=== PATIENT | female | born 1985 | race American Indian/Alaskan Native ===

== ENCOUNTER 2017-12-12 00:04 | Emergency (ER) | payer MEDICAID, BC ==
[2017-12-12 00:29] VITALS: RESP 18; BMI 29.9
--- NOTE | 2017-12-12 01:15 | ED PDOC ---
Arrival/HPI - General Chief Complaint: Flu-like Symptoms Time Seen by Provider: 12/12/17 00:11 Historian: Patient - History of Present Illness Narrative History of Present Illness (Text): 12/12/17 01:15 32 year old female, with no significant past medical history, presents to the Emergency department complaining of flu-like symptoms since past week. Patient informs low grade fever associated with non-productive cough and runny nose. Patient states no improvement to symptoms since onset prompting her to present to the Emergency department for medical evaluation. Patient denies any nausea, vomiting, diarrhea, abdominal pain, dysuria, urinary output changes, changes in bowel movement, chest pain, shortness of breath, sick contact, recent travel or any other complaints. PMD: Dr. Corado Time/Duration: 1 week Symptom Onset: Gradual Symptom Course: Unchanged Activities at Onset: Light Context: Home Past Medical History - Provider Review Nursing Documentation Reviewed: Yes - Infectious Disease Hx of Infectious Diseases: None - Tetanus Immunization Tetanus Immunization: Unknown - Past Medical History Past Medical History: No Previous - Musculoskeletal/Rheumatological Hx Falls: No - Psychiatric Hx Depression: No Hx Emotional Abuse: No Hx Physical Abuse: No Hx Substance Use: No - Past Surgical History Past Surgical History: No Previous - Anesthesia Hx Anesthesia: No - Suicidal Assessment Feels Threatened In Home Enviroment: No Family/Social History - Physician Review Nursing Documentation Reviewed: Yes Family/Social History: No Known Family HX Smoking Status: Never Smoked Hx Alcohol Use: Yes (socially) Hx Substance Use: No Hx Substance Use Treatment: No Allergies/Home Meds Allergies/Adverse Reactions: Allergies No Known Allergies Allergy (Verified 10/22/11 11:38) Review of Systems - Physician Review All systems were reviewed & negative as marked: Yes - Review of Systems Constitutional: Fevers Eyes: Normal ENT: Rhinorrhea Respiratory: Cough. absent: SOB Cardiovascular: Normal. absent: Chest Pain Gastrointestinal: Normal. absent: Abdominal Pain, Stool Changes, Diarrhea, Nausea, Vomiting Genitourinary Female: Normal. absent: Dysuria, Urine Output Changes Musculoskeletal: Normal Skin: Normal Neurological: Normal Endocrine: Normal Hemo/Lymphatic: Normal Psychiatric: Normal Physical Exam Vital Signs Reviewed: Yes Vital Signs Temp Pulse Resp BP Pulse Ox 12/12/17 03:08 98.1 F 82 18 100 12/12/17 02:59 98.1 F 80 18 118/76 98 12/12/17 01:26 101.4 F H 12/12/17 00:22 101.4 F H 101 H 18 116/69 99 Temperature: Febrile Blood Pressure: Normal Pulse: Tachycardic Respiratory Rate: Normal Appearance: Positive for: Well-Appearing, Non-Toxic, Comfortable Pain Distress: None Mental Status: Positive for: Alert and Oriented X 3 - Systems Exam Head: Present: Atraumatic, Normocephalic Pupils: Present: PERRL Extroacular Muscles: Present: EOMI Conjunctiva: Present: Normal Mouth: Present: Moist Mucous Membranes Neck: Present: Normal Range of Motion Respiratory/Chest: Present: Clear to Auscultation, Good Air Exchange. No: Respiratory Distress, Accessory Muscle Use Cardiovascular: Present: Regular Rate and Rhythm, Normal S1, S2. No: Murmurs Abdomen: No: Tenderness, Distention, Peritoneal Signs Back: Present: Normal Inspection Upper Extremity: Present: Normal Inspection. No: Cyanosis, Edema Lower Extremity: Present: Normal Inspection. No: Edema Neurological: Present: GCS=15, CN II-XII Intact, Speech Normal Skin: Present: Warm, Dry, Normal Color. No: Rashes Psychiatric: Present: Alert, Oriented x 3, Normal Insight, Normal Concentration Medical Decision Making ED Course and Treatment: 12/12/17 01:11 Impression: 32 year old female presents to the Emergency department for flu- like symptoms. Plan: -- Labs -- Chest X-ray -- Tylenol -- Reassess and disposition Prior Visits: Notes and results from previous visits were reviewed. Progress Notes: 12/12/17 03:00 Chest X-ray reviewed, shows no acute processes. - Lab Interpretations Lab Results: 12/12/17 01:39 12/12/17 01:39 Lab Results 12/12/17 01:39: WBC 8.8, RBC 3.84, Hgb 11.4 L, Hct 34.5 L, MCV 89.8, MCH 29.7, MCHC 33.0, RDW 13.3, Plt Count 265, MPV 10.0 12/12/17 01:39: Sodium 141, Potassium 4.1, Chloride 104, Carbon Dioxide 25, Anion Gap 16, BUN 10, Creatinine 0.9, Est GFR ( Amer) > 60, Est GFR (Non- Af Amer) > 60, Random Glucose 98, Calcium 8.9, Total Bilirubin 0.3, AST 21, ALT 25, Alkaline Phosphatase 52, Total Protein 7.7, Albumin 4.2, Globulin 3.5, Albumin/Globulin Ratio 1.2 12/12/17 01:29: Influenza Typ A,B (EIA) Negative for flu a/b - RAD Interpretation Radiology Orders: 12/12/17 01:11 CHEST PORTABLE [RAD] Stat Business Office Director: ED Physician - Medication Orders Current Medication Orders: Discontinued Medications Acetaminophen (Tylenol 325mg Tab) 650 mg PO STAT STA Stop: 12/12/17 01:12 Last Admin: 12/12/17 01:26 Dose: 650 mg MAR Pain/Vitals Document 12/12/17 01:26 BERNABE (Rec: 12/12/17 01:27 BERNABE [id number]) Pain Reassessment Is This A Pain ReAssessment? No Sleep Is patient sleeping during reassessment? No Presence of Pain Presence of Pain Yes Pain Scale Used Pain Scale Used Numeric Location Intensity 7 Scale Used Numeric Vitals Temperature (97.6 F-99.6 F) 101.4 F Temperature Source Oral - Scribe Statement The provider has reviewed the documentation as recorded by the Scribe Yann Venegas. All medical record entries made by the Scribe were at my direction and personally dictated by me. I have reviewed the chart and agree that the record accurately reflects my personal performance of the history, physical exam, medical decision making, and the department course for this patient. I have also personally directed, reviewed, and agree with the discharge instructions and disposition. Disposition/Present on Arrival - Present on Arrival Any Indicators Present on Arrival: No History of DVT/PE: No History of Uncontrolled Diabetes: No Urinary Catheter: No History of Decub. Ulcer: No History Surgical Site Infection Following: None - Disposition Have Diagnosis and Disposition been Completed?: Yes Diagnosis: Bronchitis Disposition: HOME/ ROUTINE Disposition Time: 03:00 Patient Plan: Discharge Condition: GOOD Discharge Instructions (ExitCare): Acute Bronchitis, Adult (DC) Additional Instructions: Drink plenty of liquids/tylenol for fever as directed/take meds as prescribed/ follow up with your doctor this week Prescriptions: Benzonatate [Tessalon Perles] 100 mg PO TID PRN #21 sgl PRN Reason: Cough Azithromycin [Zithromax] 250 mg PO DAILY #6 tab Referrals: Radha Corado DO [Primary Care Provider] - Follow up with primary Forms: Spool (Icelandic)
[2017-12-12 02:01] LABS: ALB/GLOB RATIO 1.2 (1.1-1.8); ALBUMIN 4.2 g/dL (3.0-4.8); ALT/SGPT 25 U/L (7-56); AST/SGOT 21 U/L (14-36); BLOOD UREA NITROGEN 10 mg/dL (7-21); CALCIUM 8.9 mg/dL (8.4-10.5); GFR AFRICAN-AMERICAN > 60; GFR NON-AFRICAN AMERICAN > 60
[2017-12-12 02:09] LABS: HEMOGLOBIN 11.4 g/dL (12.0-16.0); MEAN CELL VOLUME 89.8 fl (80.0-105.0); MEAN CORPUSCULAR HEMOGLOBIN 29.7 pg (25.0-35.0); RBC 3.84 10^6/uL (3.5-6.1); RED CELL DISTRIBUTION WIDTH 13.3 % (11.5-14.5); WHITE BLOOD COUNT 8.8 10^3/ul (4.5-11.0)
[2017-12-12 03:00] VITALS: BP 118/76; TEMP 98.1
[2017-12-12 03:11] VITALS: PULSE 82; O2SAT 100
--- NOTE | 2017-12-12 10:31 | RAD ---
HISTORY: fever/cough COMPARISON: 10/22/2011 FINDINGS: LUNGS: No active pulmonary disease. PLEURA: No significant pleural effusion identified, no pneumothorax apparent. CARDIOVASCULAR: Normal. OSSEOUS STRUCTURES: No significant abnormalities. VISUALIZED UPPER ABDOMEN: Normal. OTHER FINDINGS: None. IMPRESSION: No active disease. No significant interval change compared to the prior examination(s).
== END 2017-12-12 03:08 | disposition home or self-care (01) ==
LOC: ED 00:04
DX: J20.9 Acute bronchitis, unspecified (principal)

== ENCOUNTER 2017-12-15 16:12 | Inpatient (IN) | payer BC, MEDICAID ==
[2017-12-15 16:12] VITALS: BMI 29.9
[2017-12-15] MEDS ORDERED: Sodium Chloride 0.9% 1,000 ML IV STA (17:16)
--- NOTE | 2017-12-15 17:23 | ED PDOC ---
Arrival/HPI - General Chief Complaint: Fever Time Seen by Provider: 12/15/17 17:12 Historian: Patient EM Caveat: Unstable Vital Signs - History of Present Illness Narrative History of Present Illness (Text): 12/15/17 17:19 Pt is a 32 year old female, with no significant past medical history, presents to the Emergency department complaining of fever, cough and vomiting for the past week. Pt says she was diagnosed with bronchitis and was given Azithromycin and tessalon perles. Pt was last seen at [facility] [place] [facility] 12/12/17 and discharged. Pt was also assessed at [facility] [place] and was given tylenol, fluids and d/c'd home. Pt continues to have a high fever, vomiting and cough and has almost finished Z- Alexander. Patient denies diarrhea, abdominal pain, dysuria, urinary output changes, changes in bowel movement, chest pain, shortness of breath, sick contact, recent travel or any other complaints. PMD: Dr. Corado Time/Duration: 1 week Symptom Onset: Gradual Symptom Course: Unchanged Quality: Unable to Describe Severity Level: 4 Activities at Onset: Rest, Light Context: Home Past Medical History - Provider Review Nursing Documentation Reviewed: Yes - Travel History Have you recently traveled outside [place] w/in the past 3 mons?: No - Infectious Disease Hx of Infectious Diseases: None - Tetanus Immunization Tetanus Immunization: Unknown - Reproductive Menopause: No - Past Medical History Past Medical History: No Previous - Cardiac Hx Cardiac Disorders: No - Pulmonary Hx Respiratory Disorders: No - Musculoskeletal/Rheumatological Hx Falls: No - Psychiatric Hx Depression: No Hx Emotional Abuse: No Hx Physical Abuse: No Hx Substance Use: No - Past Surgical History Past Surgical History: No Previous - Surgical History Other/Comment: upper back surgery , lump removal - Anesthesia Hx Anesthesia: No - Suicidal Assessment Feels Threatened In Home Enviroment: No Family/Social History - Physician Review Nursing Documentation Reviewed: Yes Family/Social History: Unknown Family HX Smoking Status: Never Smoked Hx Alcohol Use: Yes (socially) Hx Substance Use: No Hx Substance Use Treatment: No Allergies/Home Meds Allergies/Adverse Reactions: Allergies No Known Allergies Allergy (Verified 12/15/17 16:26) Review of Systems - Review of Systems Constitutional: Fatigue, Fevers Eyes: Normal ENT: Normal Respiratory: Normal, Cough Cardiovascular: Normal. absent: Chest Pain Gastrointestinal: Normal, Nausea, Vomiting, Appetite Changes. absent: Abdominal Pain, Stool Changes, Diarrhea, Hematochezia, Hematemesis Genitourinary Female: Normal Musculoskeletal: Normal, Back Pain. absent: Arthralgias Skin: Normal Neurological: Normal, Headache Endocrine: Diaphoresis Hemo/Lymphatic: Normal Psychiatric: Normal Physical Exam Vital Signs Reviewed: Yes Vital Signs Temp Pulse Resp BP Pulse Ox 12/15/17 19:59 96 H 18 108/79 100 12/15/17 19:12 103.0 F H 93 H 18 106/59 L 100 12/15/17 18:43 103.0 F H 12/15/17 17:44 103 F H 12/15/17 16:21 103 F H 104 H 18 129/76 99 Temperature: Febrile Blood Pressure: Normal Pulse: Tachycardic Respiratory Rate: Normal Appearance: Positive for: Non-Toxic, Uncomfortable Pain Distress: Mild Mental Status: Positive for: Alert and Oriented X 3 - Systems Exam Head: Present: Atraumatic, Normocephalic Pupils: Present: PERRL Extroacular Muscles: Present: EOMI Conjunctiva: Present: Normal Mouth: Present: Moist Mucous Membranes Neck: Present: Normal Range of Motion Respiratory/Chest: Present: Clear to Auscultation, Good Air Exchange. No: Respiratory Distress, Accessory Muscle Use, Wheezes, Decreased Breath Sounds, Rales Cardiovascular: Present: Regular Rate and Rhythm, Normal S1, S2. No: Murmurs Abdomen: Present: Normal Bowel Sounds. No: Tenderness, Distention, Peritoneal Signs Breast/Axillary: No: Axillary Lymphad Back: Present: Normal Inspection. No: CVA Tenderness Upper Extremity: Present: Normal Inspection, Capillary Refill < 2s. No: Cyanosis, Edema Lower Extremity: Present: Normal Inspection, Capillary Refill < 2 s. No: Edema Neurological: Present: GCS=15, CN II-XII Intact, Speech Normal, Motor Func Grossly Intact, Normal Sensory Function Skin: Present: Warm, Dry, Normal Color. No: Rashes Lymphatic: No: Cervical Adenopathy, Axillary Adenopathy, Inguinal Adenopathy Psychiatric: Present: Alert, Oriented x 3, Normal Insight, Normal Concentration Medical Decision Making ED Course and Treatment: 12/15/17 17:23 Impression Pt is a 32 year old female, with no significant past medical history, presents to the Emergency department complaining of fever, cough and vomiting for the past week. Working Dx: EBV vs Lyme vs Influenza Plan Labs, UA fluids Motrin 400mg CXR Blood Cx Heterophile monospot Progress Note CXR unremarkable for acute cardiopulmonary disease WBC: 13.[address] Ospina and discussed admitting pt to med/surg for FUO and failure of outpatient treatment; admitted under Dr Munguia's service Informed pt and family of medical decision; they verbally acknowledged and consented NS IVF x 1L added and Motrin 400mg PO Pt resting comfortably - Lab Interpretations Lab Results: 12/15/17 17:56 12/15/17 17:56 Lab Results 12/15/17 17:56: Hepatitis A IgM Ab Negative, Hep Bs Antigen Negative, Hep B Core IgM Ab Negative, Hepatitis C Antibody Negative 12/15/17 17:56: C-Reactive Protein 136.30 H 12/15/17 17:56: ESR 28 H, Retic Count 0.34 L 12/15/17 17:56: Monoscreen Negative 12/15/17 17:56: Sodium 139, Potassium 3.9, Chloride 101, Carbon Dioxide 26, Anion Gap 16, BUN 6 L, Creatinine 0.8, Est GFR ( Amer) > 60, Est GFR (Non -Af Amer) > 60, Random Glucose 103, Calcium 8.6, Total Bilirubin 0.5, AST 47 H D , ALT 36, Alkaline Phosphatase 63, Total Protein 7.8, Albumin 4.0, Globulin 3.8 , Albumin/Globulin Ratio 1.0 L 12/15/17 17:56: WBC 7.9, RBC 3.76, Hgb 11.2 L, Hct 33.0 L, MCV 87.8, MCH 29.8, MCHC 33.9, RDW 13.0, Plt Count 199, MPV 9.9, Gran % 82.7 H, Lymph % (Auto) 9.6 L , [place] % (Auto) 7.1 H, Eos % (Auto) 0.3 L, Baso % (Auto) 0.3, Gran # 6.52 H, Lymph # (Auto) 0.8 L, [place] # (Auto) 0.6, Eos # (Auto) 0.0, Baso # (Auto) 0.02 12/15/17 17:20: Urine Color Yellow, Urine Appearance Sl cloudy, Urine pH 6.5, Ur Specific [place] 1.020, Urine Protein 30 H, Urine Glucose (UA) Negative, Urine Ketones Trace H, Urine Blood Negative, Urine Nitrate Negative, Urine Bilirubin Negative, Urine Urobilinogen 4.0 H, Ur Leukocyte Esterase Trace H, Urine RBC 0 - 2, Urine WBC 1 - 3, Ur Epithelial Cells 10 - 12, Urine Bacteria Mod - RAD Interpretation Radiology Orders: 12/15/17 17:17 CHEST PORTABLE [RAD] Stat - Medication Orders Current Medication Orders: Acetaminophen (Tylenol 325mg Tab) 650 mg PO Q4H PRN PRN Reason: Fever >100.4 F Last Admin: 12/16/17 05:31 Dose: 650 mg MAR Pain/Vitals Document 12/16/17 05:31 TADEO (Rec: 12/16/17 05:31 TADEO [id number]) Vitals Temperature (97.6 F-99.6 F) 101.6 F Temperature Source Oral Sodium Chloride (Sodium Chloride 0.9%) 1,000 mls @ 100 mls/hr IV .Q10H [facility] Stop: 12/16/17 13:44 Last Admin: 12/16/17 06:25 Dose: 100 mls/hr eMAR Start Stop Document 12/16/17 06:25 TADEO (Rec: 12/16/17 06:25 TADEO [id number]) Intravenous Solution Start Date 12/16/17 Start Time 06:25 Vancomycin HCl (Vancomycin 1gm) 1 gm in 250 mls @ 167 mls/hr IVPB Q12H YVES PRN Reason: Protocol Stop: 12/24/17 22:46 Last Admin: 12/16/17 10:28 Dose: 167 mls/hr eMAR Start Stop Document 12/16/17 10:28 MV (Rec: 12/16/17 10:28 MV [id number]) Intravenous Solution Start Date 12/16/17 Start Time 10:28 Piperacillin Sod/Tazobactam Sod (Zosyn 3.375 In Ns 100ml) 100 mls @ 200 mls/hr IVPB Q6 YVES PRN Reason: Protocol Stop: 12/24/17 22:46 Last Admin: 12/16/17 06:17 Dose: 200 mls/hr eMAR Start Stop Document 12/16/17 06:17 TADEO (Rec: 12/16/17 06:18 TADEO [id number]) Intravenous Solution Start Date 12/16/17 Start Time 06:17 End Date 12/16/17 End time 06:47 Total Infusion Time 30 Ibuprofen (Motrin Tab) 400 mg PO Q6 PRN PRN Reason: Pain, Mild (1-3) Last Admin: 12/16/17 10:28 Dose: 400 mg Ondansetron HCl (Zofran Inj) 4 mg IVP Q4H PRN PRN Reason: Nausea/Vomiting Discontinued Medications Sodium Chloride (Sodium Chloride 0.9%) 1,000 mls @ 999 mls/hr IV .Q1H1M STA Stop: 12/15/17 18:16 Last Admin: 12/15/17 17:33 Dose: 999 mls/hr eMAR Start Stop Document 12/15/17 17:33 CALLIE (Rec: 12/15/17 17:33 [facility]IE [email or web address]) Intravenous Solution Start Date 12/15/17 Start Time 17:33 End Date 12/15/17 Ibuprofen (Motrin Tab) 400 mg PO STAT STA Stop: 12/15/17 17:27 Last Admin: 12/15/17 17:44 Dose: 400 mg MAR Pain/Vitals Document 12/15/17 17:44 CALLIE (Rec: 12/15/17 17:44 CALLIE [email or web address] Vitals Temperature (97.6 F-99.6 F) 103 F Temperature Source Oral Pneumococcal Polyvalent Vaccine (Pneumovax 23 Vaccine) 0.5 ml IM .ONCE ONE Stop: 12/15/17 21:59 Disposition/Present on Arrival - Present on Arrival Any Indicators Present on Arrival: Yes History of DVT/PE: No History of Uncontrolled Diabetes: No Urinary Catheter: No History of Decub. Ulcer: No History Surgical Site Infection Following: None - Disposition Have Diagnosis and Disposition been Completed?: Yes Diagnosis: Fever of unknown origin (FUO), Bronchitis, Failure of outpatient treatment Disposition: HOSPITALIZED Disposition Time: 18:25 Patient Plan: Admission Patient Problems: Current Active Problems Problem Status Onset Bronchitis Acute Failure of outpatient treatment Acute Fever of unknown origin (FUO) Acute Condition: STABLE
[2017-12-15 17:46] LABS: PH,URINE 6.5 (4.7-8.0); URINE BILIRUBIN NEGATIVE (NEGATIVE); URINE BLOOD NEGATIVE (NEGATIVE); URINE GLUCOSE (UA) NEGATIVE (NEGATIVE); URINE LEUKOCYTE ESTERASE TRACE Leu/uL (NEGATIVE); URINE PROTEIN 30 mg/dL (<30 mg/dL)
[2017-12-15 17:55] LABS: URINE APPEARANCE SL CLOUDY (CLEAR); URINE COLOR YELLOW (YELLOW)
[2017-12-15 17:56] LABS: URINE RBC 0 - 2 /hpf (0-2)
[2017-12-15 17:57] LABS: URINE BACTERIA MOD (NEG)
[2017-12-15 18:01] LABS: BASO # 0.02 K/mm3 (0.0-2.0); BASO % 0.3 % (0.0-3.0); EOS % 0.3 % (1.5-5.0); GRAN # 6.52 (1.4-6.5); GRAN % 82.7 % (50.0-68.0); HEMOGLOBIN 11.2 g/dL (12.0-16.0); LYMPH # 0.8 (1.2-3.4); LYMPH % 9.6 % (22.0-35.0); MEAN CELL VOLUME 87.8 fl (80.0-105.0); MEAN CORPUSCULAR HEMOGLOBIN 29.8 pg (25.0-35.0); MEAN CORPUSCULAR HGB CONC 33.9 g/dl (31.0-37.0); MEAN PLATELET VOLUME 9.9 fl (7.0-11.0); MONO # 0.6 (0.1-0.6); MONO % 7.1 % (1.0-6.0); RBC 3.76 10^6/uL (3.5-6.1); WHITE BLOOD COUNT 7.9 10^3/ul (4.5-11.0)
[2017-12-15 18:33] LABS: ALT/SGPT 36 U/L (7-56); AST/SGOT 47 U/L (14-36); BLOOD UREA NITROGEN 6 mg/dL (7-21); CALCIUM 8.6 mg/dL (8.4-10.5); GFR AFRICAN-AMERICAN > 60; GFR NON-AFRICAN AMERICAN > 60
[2017-12-15] MEDS: Sodium Chloride 0.9% 1,000 ML IV SCH (18:43)
[2017-12-15] MEDS ORDERED: Pneumococcal 23-Valent Vaccine IM ONE (21:58)
[2017-12-15] MEDS: Piperacillin/Tazobact 3.375 gm 100 ML IVPB SCH (23:33)
[2017-12-15] MEDS: Vancomycin 1gm in NS 250ml 1 GM/250 ML BAG IVPB SCH (23:33)
[2017-12-16] MEDS: Piperacillin/Tazobact 3.375 gm 100 ML IVPB SCH ×5 (06:17→23:17)
[2017-12-16] MEDS: Sodium Chloride 0.9% 1,000 ML IV SCH ×2 (06:25→22:47)
--- NOTE | 2017-12-16 07:06 | RAD ---
HISTORY: Fever and cough COMPARISON: Portable chest 12/12/2017. FINDINGS: LUNGS: No active pulmonary disease. PLEURA: No significant pleural effusion identified, no pneumothorax apparent. CARDIOVASCULAR: Normal. OSSEOUS STRUCTURES: No significant abnormalities. VISUALIZED UPPER ABDOMEN: Normal. OTHER FINDINGS: None. IMPRESSION: No interval acute cardiopulmonary disease appreciated.
[2017-12-16] MEDS ORDERED: Barium Sulfate Susp 2.1% w/v, 2.0% w/w 450 mL Bottle PO ONE (07:24)
[2017-12-16] MEDS: Vancomycin 1gm in NS 250ml 1 GM/250 ML BAG IVPB SCH ×2 (10:28→22:13)
[2017-12-16 11:45] LABS: HEPATITIS B SURFACE AG Negative (NEGATIVE)
[2017-12-16 11:51] LABS: HEPATITIS A IGM NEGATIVE (NEGATIVE); HEPATITIS B CORE AB NEGATIVE (NEGATIVE)
[2017-12-16 12:03] LABS: HEPATITIS C ANTIBODY NEGATIVE (NEGATIVE)
--- NOTE | 2017-12-16 12:08 | CP.PCM.HP ---
<Jeremiah Clemente - Last Filed: 12/16/17 12:05> History of Present Illness - History of Present Illness History of Present Illness: Medicine H&P for Dr. Anai Clemente PGY3 HPI: Patient is a 32yo female with no significant past medical history that presents c/o fever associated with non-productive cough for the past 2 weeks. She reported that [place] [facility] [place] her symptoms didn't improve at home with symptomatic relief and at that time was prescribed Azithromycin and tessalon perles. She stated she had minimal improvement with the medication prescribed to her and [place] [facility] [place] [facility] [place] and instructed to continue the medication prescribed however continued to have fevers now with non-bilious, non-bloody vomiting. She denied chest pain, palpitations, SOB, abdominal pain, nausea, focal weakness, numbness , tingling, sick contacts, recent travel, dysuria, frequency, urgency, bowel/ bladder changes. 12point ROS as per above otherwise negative PMH: as stated above Allergies: NKDA Social Hx: denies tobacco, alcohol and illicit drug use Family Hx: noncontributory PMD: Dr. Corado Present on Admission - Present on Admission Any Indicators Present on Admission: No Past Patient History - Infectious Disease Hx of Infectious Diseases: None - Tetanus Immunizations Tetanus Immunization: Unknown - Past Social History Smoking Status: Never Smoked - CARDIAC Hx Cardiac Disorders: No - PULMONARY Hx Respiratory Disorders: No - MUSCULOSKELETAL/RHEUMATOLOGICAL Hx Falls: No - PSYCHIATRIC Hx Depression: No Hx Emotional Abuse: No Hx Physical Abuse: No - SURGICAL HISTORY Other/Comment: upper back surgery , lump removal - ANESTHESIA Hx Anesthesia: No Meds Allergies/Adverse Reactions: Allergies Allergy/AdvReac Type Severity Reaction Status Date / Time No Known Allergies Allergy Verified 12/15/17 16:26 Physical Exam - Constitutional Appears: No Acute Distress - Head Exam Head Exam: ATRAUMATIC, NORMOCEPHALIC - Eye Exam Eye Exam: EOMI Pupil Exam: PERRL - ENT Exam ENT Exam: Mucous Membranes Moist - Neck Exam Neck exam: Positive for: Normal Inspection - Respiratory Exam Respiratory Exam: Clear to Auscultation Bilateral. absent: Rales, Rhonchi, Wheezes - Cardiovascular Exam Cardiovascular Exam: RRR, +S1, +S2. absent: Gallop, JVD, Rubs - GI/Abdominal Exam GI & Abdominal Exam: Normal Bowel Sounds, Soft. absent: Distended, Firm, Guarding, Rebound, Rigid, Tenderness - Extremities Exam Extremities exam: Positive for: normal inspection. Negative for: pedal edema - Neurological Exam Neurological exam: Alert, CN II-XII Intact, Oriented x3 - Psychiatric Exam Psychiatric exam: Normal Affect, Normal Mood - Skin Skin Exam: Dry, Intact, Normal Color, Warm Results - Vital Signs Recent Vital Signs: Last Vital Signs Temp 101.6 F H 12/16/17 08:57 Pulse 94 H 12/16/17 08:57 Resp 20 12/16/17 08:57 BP 105/66 12/16/17 08:57 Pulse Ox 98 12/16/17 08:57 - Labs Result Diagrams: 12/15/17 17:56 12/15/17 17:56 Assessment & Plan - Assessment and Plan (Free Text) Plan: 32yo female with no significant past medical history presents with c/o fever and cough for past 2 weeks 1. Fever/cough of unknown etiology -Cultures are pending at this time -Urinalysis is weakly positive with trace LE, moderate bacteria and 1-3 wbc's -ID has been consulted and multiple tests are pending including HIV, [place], RPR, FTA-ABs, etc. -CT abdomen/pelvis is pending to check for intraabdominal pathology -CXR revealed no active disease -She is currently on Vancomycin and Zosyn per ID recommendations -Tylenol and Ibuprofen PRN for fever Patient seen and case discussed/reviewed with attending, Dr. Ospina <Burke Ospina S - Last Filed: 12/16/17 21:22> Results - Vital Signs Recent Vital Signs: Last Vital Signs Temp 99.9 F H 12/16/17 18:00 Pulse 83 12/16/17 18:00 Resp 19 12/16/17 18:00 BP 112/60 12/16/17 18:00 Pulse Ox 99 12/16/17 18:00 - Labs Result Diagrams: 12/15/17 17:56 12/15/17 17:56 Labs: Laboratory Results - last 24 hr 12/15/17 12/16/17 18:52 20:00 Lactate Dehydrogenase 881 H RPR Nonreactive Assessment & Plan - Assessment and Plan (Free Text) Plan: Pt seen and examined. I have reviewed the note of the medical insurance coding specialist and agree with it. I have discussed the assessment and plan with the resident. I have reviewed the patient's labs and medications. PT with fever. ID evaluation. I spoke to pt's mother last night. BCx and UCx are pending. Differential is long. Will await work up by ID. pt has improvement of her fever.Possible URI.
--- NOTE | 2017-12-16 14:32 | CT ---
PROCEDURE: CT Abdomen and Pelvis with contrast HISTORY: fever COMPARISON: None. TECHNIQUE: Helical CT of the abdomen and pelvis was performed following oral contrast administration. Intravenous contrast was not administered as per referring physician request. Contrast dose: None Radiation dose: Total exam DLP = 650.81 mGy-cm. This CT exam was performed using one or more of the following dose reduction techniques: Automated exposure control, adjustment of the mA and/or kV according to patient size, and/or use of iterative reconstruction technique. FINDINGS: LOWER THORAX: Limited linear atelectasis in the bilateral lung bases. Trace bilateral pleural effusions noted. LIVER: Unremarkable. No gross lesion or ductal dilatation. GALLBLADDER AND BILE DUCTS: Unremarkable. PANCREAS: The peripheral margins of the pancreas are poorly defined and in fact reactive changes seen at the dorsal margins of the pancreatic body and tail extending into the retroperitoneum. The pattern is suspicious for pancreatitis. No obvious pancreatic duct dilatation. Lack of intravenous contrast limits evaluation of the pancreatic parenchyma intrinsically. SPLEEN: Unremarkable. ADRENALS: Unremarkable. No mass. KIDNEYS AND URETERS: Punctate intrarenal calculus midpole right kidney. No obstructive uropathy bilaterally or prominent perinephric reaction. VASCULATURE: Unremarkable. No aortic aneurysm. BOWEL: Unremarkable. No obstruction. No gross mural thickening. APPENDIX: Normal appendix. PERITONEUM: Unremarkable. No free fluid. No free air. LYMPH NODES: There is nonspecific retroperitoneal lymphadenopathy with numerous lymph nodes identified measuring up to 1.9 x 1.0 cm. An nonspecific radiodensity seen inferior anterior to the esophagogastric junction measuring approximate 2.5 x 1.9 cm which may reflect an enlarged lymph node though this is poorly defined. Lack of contrast agents limits the interpretation. BLADDER: Unremarkable. REPRODUCTIVE: Unremarkable. BONES: No acute fracture. OTHER FINDINGS: None. IMPRESSION: 1. Findings most compatible with pancreatitis as discussed above. No ascites appreciable. Of contrast agents limits evaluation of the pancreas. 2. Mildly distended but otherwise unremarkable gallbladder. No radiodense cholelithiasis. 3. Retroperitoneal lymphadenopathy as per above. Nonspecific pattern. 2.5 cm soft tissue density seen inferior anterior to the region of the esophagogastric junction may reflect lymphadenopathy as well. 4. Punctate intrarenal calculus right kidney. No obstructive uropathy bilaterally.
--- NOTE | 2017-12-16 23:49 | CON ---
DATE: 12/16/2017 LOCATION: The patient is seen in room 374, bed 2 early this morning. CHIEF COMPLAINT: Fever, cough and vomiting times several weeks. HISTORY OF PRESENT ILLNESS: This is a 32-year-old female with no significant past medical history except for a lipoma resection in [facility] in 09/2017. Admitted with fever and cough and vomiting and Infectious Disease consultation requested. The patient states she has had some weight loss. She has no headaches except for when a fever occurs. No rash or new joint pain. There is some abdominal discomfort. No diarrhea or constipation. PAST MEDICAL HISTORY: Noncontributory. PAST SURGICAL HISTORY: Significant for lipoma surgery in 09/2017. ALLERGIES: THE PATIENT HAS NO KNOWN ALLERGIES. MEDICATIONS AT HOME: The patient was on Zithromax as outpatient. She took a Z-Alexander without any improvement. SOCIAL HISTORY: Noted. The patient was born in [facility]. Last travel was in 2014 to . Lives with her son who is 1 year old. She has never had any sexually transmitted diseases. PHYSICAL EXAMINATION: VITAL SIGNS: Temperature is 103, blood pressure is 105/60, respiratory rate of 20, heart rate of 94. HEENT: Examination of HEENT is unremarkable. NECK: Supple. LUNGS: Have decreased breath sounds. HEART: Normal S1 and S2. ABDOMEN: Soft, nontender. No rebound or guarding. LABORATORY DATA: Laboratory examination reveals the patient's white count is 7.9, hemoglobin 11, platelets of 199. The patient has 82% granulocytosis, sed rate is 28, retic count is 0.34. Chemistries reveals a BUN of 6, creatinine of 0.8, AST is 47, C-reactive protein is 136. Urinalysis is noted, 1-3 wbc's, there is trace leukocyte esterase, 80 proteins and moderate bacteria. RPR is negative. Hepatitis profile is negative. Cedar screen is negative. Microbiology is pending. I have ordered a CAT scan early this morning when I saw the patient, which shows a retroperitoneal lymphadenopathy. The patient has a mildly distended, otherwise unremarkable gallbladder and 2.5 cm soft density inferoanterior at the region of the esophagogastric junction. History and physical examination is reviewed. ASSESSMENT AND PLAN: This is a 32-year-old female with systemic inflammatory response syndrome with must rule out lymphoma with retroperitoneal adenopathy, questionable esophageal junction mass. We will order an LDH, a CAT scan of the chest. Hematology evaluation, Oncology evaluation. I have ordered a vasculitis workup, human immunodeficiency virus, streptococcus, pancultures. May need a lymph node biopsy, rule out lymphoma. I will also order an LDH. We will start empirically on vancomycin, Zosyn pending pancultures, initial workup results. We will follow with you. Tanner Loomis MD
[2017-12-17] MEDS: Piperacillin/Tazobact 3.375 gm 100 ML IVPB SCH ×3 (05:43→18:38)
[2017-12-17 07:15] LABS: BASO # 0.02 K/mm3 (0.0-2.0); BASO % 0.3 % (0.0-3.0); EOS % 0.4 % (1.5-5.0); GRAN # 5.66 (1.4-6.5); GRAN % 82.7 % (50.0-68.0); HEMOGLOBIN 9.9 g/dL (12.0-16.0); LYMPH # 0.7 (1.2-3.4); LYMPH % 10.5 % (22.0-35.0); MEAN CELL VOLUME 86.6 fl (80.0-105.0); MEAN CORPUSCULAR HEMOGLOBIN 28.8 pg (25.0-35.0); MEAN CORPUSCULAR HGB CONC 33.2 g/dl (31.0-37.0); MEAN PLATELET VOLUME 10.2 fl (7.0-11.0); MONO # 0.4 (0.1-0.6); MONO % 6.1 % (1.0-6.0); RBC 3.44 10^6/uL (3.5-6.1); RED CELL DISTRIBUTION WIDTH 13.4 % (11.5-14.5); WHITE BLOOD COUNT 6.9 10^3/ul (4.5-11.0)
[2017-12-17 07:24] LABS: ALBUMIN 3.4 g/dL (3.0-4.8); ALT/SGPT 39 U/L (7-56); AST/SGOT 41 U/L (14-36); BLOOD UREA NITROGEN 6 mg/dL (7-21); CALCIUM 8.3 mg/dL (8.4-10.5); GFR AFRICAN-AMERICAN > 60; GFR NON-AFRICAN AMERICAN > 60
[2017-12-17] MEDS: Promethazine 6.25 MG/5 ML CUP PO PRN (07:29)
[2017-12-17 07:35] LABS: TROPONIN I < 0.01 ng/mL
--- NOTE | 2017-12-17 10:23 | CP.PCM.PN ---
<Jeremiah Clemente - Last Filed: 12/17/17 10:20> Subjective - Date & Time of Evaluation Date of Evaluation: 12/17/17 Time of Evaluation: 10:20 - Subjective Subjective: Medicine progress note for Dr. Ospina's service - Danny Clemente PGY3 Patient seen and examined at bedside this morning. She continues to have fevers despite antibiotics and antipyretics. CT abdomen/pelvis revealed retropertionenal adenopathy pending oncology input. Otherwise, she is eating well and denies chest pain, palpitations, SOB. Objective - Vital Signs/Intake and Output Vital Signs (last 24 hours): Temp Pulse Resp BP Pulse Ox 101.1 F H 80 20 108/67 94 L 12/17/17 07:05 12/17/17 08:36 12/17/17 08:36 12/17/17 08:36 12/17/17 08:36 Intake and Output: 12/17/17 12/17/17 06:59 18:59 Intake Total 2580 Balance 2580 - Medications Medications: Current Medications Acetaminophen (Tylenol 325mg Tab) 650 mg PO Q4H PRN PRN Reason: Fever >100.4 F Last Admin: 12/17/17 05:47 Dose: 650 mg Vancomycin HCl (Vancomycin 1gm) 1 gm in 250 mls @ 167 mls/hr IVPB Q12H YVES PRN Reason: Protocol Stop: 12/24/17 22:46 Last Admin: 12/16/17 22:13 Dose: 167 mls/hr Piperacillin Sod/Tazobactam Sod (Zosyn 3.375 In Ns 100ml) 100 mls @ 200 mls/hr IVPB Q6 YVES PRN Reason: Protocol Stop: 12/24/17 22:46 Last Admin: 12/17/17 05:43 Dose: 200 mls/hr Ibuprofen (Motrin Tab) 400 mg PO Q6 PRN PRN Reason: Pain, Mild (1-3) Last Admin: 12/17/17 07:05 Dose: 400 mg Ondansetron HCl (Zofran Inj) 4 mg IVP Q4H PRN PRN Reason: Nausea/Vomiting Promethazine HCl (Phenergan Syrup) 6.25 mg PO Q4H PRN PRN Reason: Cough Last Admin: 07/06/18 07:29 Dose: 6.25 mg - Labs Labs: 12/17/17 07:00 12/17/17 07:00 - Constitutional Appears: No Acute Distress - Head Exam Head Exam: ATRAUMATIC, NORMOCEPHALIC - Eye Exam Eye Exam: EOMI Pupil Exam: PERRL - ENT Exam ENT Exam: Mucous Membranes Moist - Respiratory Exam Respiratory Exam: Clear to Ausculation Bilateral. absent: Rales, Rhonchi, Wheezes - Cardiovascular Exam Cardiovascular Exam: RRR, +S1, +S2. absent: Gallop, JVD, Rubs - GI/Abdominal Exam GI & Abdominal Exam: Soft. absent: Distended, Firm, Guarding, Rigid, Tenderness , Rebound - Neurological Exam Neurological Exam: Alert, Awake, CN II-XII Intact, Oriented x3 - Psychiatric Exam Psychiatric exam: Normal Affect, Normal Mood - Skin Skin Exam: Dry, Intact, Normal Color, Warm Assessment and Plan - Assessment and Plan (Free Text) Plan: 32yo female with no significant past medical history presents with c/o fever and cough for past 2 weeks 1. Fever of unknown origin -CT abdomen/pelvis revealed retroperitoneal lymphadenopathy, 2.5cm soft tissue density seen inferior anterior to the region of the esophagogastric junction may reflect lymphadenopathy; see full report for further details -Oncology has been consulted for evaluation; She will likely require a lymph node biopsy for further evaluation. -CT Chest is pending for further evaluation of adenopathy and EG junction -Urine culture is negative and blood cultures have been negative over the past 24hrs -HIV, hepatitis panel, RPR, Kenedy, cryptococcus testing has been negative -MARILIA panel pending -CXR revealed no active disease -She is currently on empiric treatment with Vancomycin and Zosyn per ID recommendations -Tylenol and Ibuprofen PRN for fever Patient seen and case discussed/reviewed with attending, Dr. Ospina <Burke Ospina S - Last Filed: 12/19/17 09:31> Objective - Vital Signs/Intake and Output Vital Signs (last 24 hours): Temp Pulse Resp BP Pulse Ox 99.2 F 43 L 18 111/69 100 12/19/17 06:00 12/19/17 06:00 12/19/17 06:00 12/19/17 06:00 12/19/17 06:00 Intake and Output: 12/19/17 12/19/17 06:59 18:59 Intake Total 300 Output Total 0 Balance 300 - Medications Medications: Current Medications Acetaminophen (Tylenol 325mg Tab) 650 mg PO Q4H PRN PRN Reason: Fever >100.4 F Last Admin: 12/17/17 05:47 Dose: 650 mg Ibuprofen (Motrin Tab) 400 mg PO Q6 PRN PRN Reason: Pain, Mild (1-3) Last Admin: 12/19/17 06:20 Dose: 400 mg Levofloxacin (Levaquin) 500 mg PO DAILY YVES PRN Reason: Protocol Stop: 12/26/17 10:01 Last Admin: 12/19/17 09:19 Dose: 500 mg Ondansetron HCl (Zofran Inj) 4 mg IVP Q4H PRN PRN Reason: Nausea/Vomiting Last Admin: 12/17/17 21:19 Dose: 4 mg Promethazine HCl (Phenergan Syrup) 6.25 mg PO Q4H PRN PRN Reason: Cough Last Admin: 12/18/17 01:31 Dose: 6.25 mg - Labs Labs: 12/17/17 07:00 12/17/17 07:00 Assessment and Plan - Assessment and Plan (Free Text) Plan: Pt seen and examined on 12-17-17 and this is a late entry. I have reviewed the note of the medical dosimetrist and agree with it. I have discussed the assessment and plan with the resident. I have reviewed the patient's labs and medications.She has adenopathy. I am concerned about malignancy. She will need oncology evaluation. I also requested IR evaluation with Dr Pang. Will await for chest CT. I also spoke to pt's mom to update her.
[2017-12-17] MEDS: Potassium Chloride 20 mEq ER Tab PO ONE ×2 (10:27→10:29)
[2017-12-17] MEDS: Vancomycin 1gm in NS 250ml 1 GM/250 ML BAG IVPB SCH ×2 (10:28→23:06)
[2017-12-17 11:11] LABS: IRON 23 ug/dL (45-180)
[2017-12-17 11:20] LABS: % IRON SATURATION 8 % (20-55); TOTAL IRON BINDING CAPACITY 282 ug/dL (265-497)
--- NOTE | 2017-12-17 11:47 | CT ---
PROCEDURE: CT Chest without contrast HISTORY: fever nodes? COMPARISON: None. TECHNIQUE: Contiguous axial images were obtained through the chest without intravenous contrast enhancement. Sagittal and coronal reconstructions were performed. Radiation dose (DLP): 412.60 mGy-cm. This CT exam was performed using one or more of the following dose reduction techniques: Automated exposure control, adjustment of the mA and/or kV according to patient size, and/or use of iterative reconstruction technique. FINDINGS: LUNGS: Bilateral lower lobe compressive atelectasis. Gurinder right lower lobe infiltrate. Possible pneumonia. Follow-up advised. 5 mm nodule lateral segment right middle lobe. No other pulmonary mass identified. MEDIASTINUM: Unremarkable thoracic aorta. No aneurysm. Normal sized heart. Main pulmonary artery unremarkable. No vascular congestion. No lymphadenopathy. Ill-defined soft tissue density in the anterior mediastinum consistent with residual thymic tissue. PLEURA: Small bilateral pleural effusion. No pneumothorax. BONES: No fracture. No destructive lesion. UPPER ABDOMEN: Grossly unremarkable. OTHER FINDINGS: None. IMPRESSION: Right lower lobe infiltrate. Followup advised. Bilateral lower lobe compressive atelectasis secondary to small pleural effusions. No other significant abnormality.
[2017-12-17 18:00] LABS: FOLATE 14.1 ng/mL
[2017-12-17] MEDS: levoFLOXacin 750 mg in D5W 150 ML BAG IVPB SCH (21:04)
[2017-12-18] MEDS: Piperacillin/Tazobact 3.375 gm 100 ML IVPB SCH ×4 (00:50→23:50)
--- NOTE | 2017-12-18 01:15 | CON ---
DATE: 12/17/2017 REASON FOR CONSULT: Lymphadenopathy, rule out lymphoma. HISTORY OF PRESENT ILLNESS: The patient is a 32-year-old female with no significant past medical history who presented to the emergency room with complaints of cough and fevers for 3 days. She states that she had a lipoma resection earlier this year and has never really been ill and never had prior such episodes. She started having fevers, cough and abdominal discomfort last week, but no prior weight changes. No prior history of such episodes. She denies any joint pain. No rash. No abdominal discomfort, has not noted any changes in her bowel habits. No nausea. No vomiting, no diarrhea, no constipation, no melena, no hematochezia. She states her periods have been regular, but they used to be 5 days in duration, but recently has decreased to 3 days in duration. No other complaints. PAST MEDICAL HISTORY: None. PAST SURGICAL HISTORY: Lipoma resection in 09/2017. ALLERGIES: SHE HAS NO KNOWN DRUG ALLERGIES. MEDICATIONS: She is taking at home currently a Zithromax as well as some cough syrup. SOCIAL HISTORY: Negative. She denies any ill contacts. She has no history of STDs. No tobacco use. No alcohol use. No drug abuse. FAMILY HISTORY: Noncontributory. REVIEW OF SYSTEMS: Is as per the HPI. PHYSICAL EXAMINATION: GENERAL: The patient is a young female, lying in bed in no acute distress. VITAL SIGNS: Reveal a temperature of 101.1, pulse of 80, respiratory rate of 20 and a blood pressure of 108/67. HEAD AND NECK: Normocephalic, atraumatic. Eyes: Pupils are equal, round and reactive to light and accommodation. Extraocular muscles are intact. There is some pallor. No icterus is noted. NECK: Supple with no adenopathy. No JVD. No thyromegaly. LUNGS: Clear to auscultation bilaterally with no rales or rhonchi. CARDIOVASCULAR: S1 and S2 is heard. ABDOMEN: Positive bowel sounds, soft, nontender and nondistended. No organomegaly is palpated. EXTREMITIES: There is no edema, clubbing or cyanosis. LABORATORY DATA: Her labs reveals a white count of 6.9, hemoglobin of 9.9, hematocrit of 29.8, MCV of 86.6, platelet count of 198 and white count diff is left shifted. Her chemistries are within normal limits. ESR is mildly elevated. LDH is 881. CRP is 136. All other electrolytes are within normal limits, mildly elevated AST, ALT. HIV and hepatitis are negative. She had CT scan of the abdomen, chest and pelvis which reveals some lymphadenopathy, mostly retroperitoneal possible EG junction of lymph node as well. ASSESSMENT AND PLAN: A young female with no prior history now admitted with fevers and possible pneumonia, on IV antibiotics, noted to have retroperitoneal as well as esophagogastric junction lymphadenopathy. Question of lymphoma has been raised. We will check flow cytometry, question of lymphoma has been raised. We will check flow cytometry for possible lymphoproliferative disorder. She will also need a PET CT as an outpatient followup. These lymph nodes may be likely reactive. At this point, ESR and LDH are not significantly elevated. We will need a lymph node biopsy, but her retroperitoneal nodes would be hard to access. We will need IV contrast study to further evaluate luke status, but await PET scan as an outpatient. Long discussion with the patient and her partner regarding followup as an outpatient for the above. Continue current antibiotics as per ID. We will followup. Suzanna Ballard MD
[2017-12-18] MEDS: Promethazine 6.25 MG/5 ML CUP PO PRN (01:31)
[2017-12-18] MEDS: levoFLOXacin 750 mg in D5W 150 ML BAG IVPB SCH (09:26)
--- NOTE | 2017-12-18 11:13 | PN ---
DATE: 12/18/2017 SUBJECTIVE: The patient is in bed. She is doing much better. Her temperature is on a downward trend. She states she feels much improved. PHYSICAL EXAMINATION: VITAL SIGNS: On exam, temperature is 98.5, T-max yesterday was 101, blood pressure is 100/56, respiratory rate of 20, heart rate of 64. HEENT: Examination of HEENT is unremarkable. NECK: Supple. LUNGS: Have decreased breath sounds. HEART: Normal S1, S2. ABDOMEN: Soft, nontender. LABORATORY DATA: Laboratory examination reveals the white count is 6.9, hemoglobin of 9, platelets of 198. Chemistries are noted. C-reactive protein is elevated. The patient does have a hemoglobin of 9.1. She is also anemic. Urinalysis, she has proteinuria, trace ketones, trace leukocyte esterase, 1-3 wbc's. Vasculitis workup pending. Serology is negative. HIV is negative. Hepatitis serology is negative. Microbiology reveals the urine cultures, multiple species, probable contamination. The blood culture is negative. The patient is currently on vancomycin, Zosyn and Levaquin. CAT scan of the chest is noted. ASSESSMENT AND PLAN: This is a 32-year-old female with no significant past medical history, admitted now with sepsis with a right lower lobe community-acquired pneumonia. This seems have responded promptly to a dose of Levaquin. I am concerned about Legionella, although at the age of 32 it would be unlikely and it would not explain the retroperitoneal lymphadenopathy. Should have Dr. Yvan Pang review the CAT scan and given opinion of possibly of biopsy if needed. We will check on the urine and Legionella antigen. We will make further recommendations. We will discontinue the vancomycin. We will follow closely with you. Tanner Loomis MD
[2017-12-18 16:36] VITALS: O2SAT 100
[2017-12-19] MEDS: Piperacillin/Tazobact 3.375 gm 100 ML IVPB SCH (06:20)
[2017-12-19 07:05] VITALS: BP 111/69; PULSE 43; RESP 18; TEMP 99.2
[2017-12-19] MEDS ORDERED: Iohexol 240 (50 ml) ONE (09:23)
[2017-12-19] MEDS ORDERED: levoFLOXacin 500 MG TAB PO SCH (10:00)
--- NOTE | 2017-12-19 15:25 | DS ---
DISCHARGE DIAGNOSES: 1. Fever. 2. Retroperitoneal lymphadenopathy. HOSPITAL COURSE: She was admitted with high fever up to 101.6. Workup done was negative in the hospital. RPR was negative. Hepatitis panel negative. She was treated with IV antibiotic. CT chest showed right lower lobe infiltrate. She defervesced within 24 hours of hospitalization. She had mild lymphadenopathy, retroperitoneal on the noncontrast CAT scan. CAT scan with chest, abdomen and pelvis with p.o. and IV contrast done today. She did not have fever for last 48 hours. She is being discharged home in stable condition. PHYSICAL EXAMINATION: GENERAL: On discharge, comfortable in bed in no acute distress. VITAL SIGNS: Temperature 98.7, heart rate 80 per minute, blood pressure 120/70, respiratory rate 18 per minute, oxygen saturation 98% on room air. HEENT: No pallor. NECK: No lymphadenopathy. CHEST: Air entry present and equal bilaterally. No added sounds. CARDIOVASCULAR: S1, S2 normal. No murmur. No gallop. ABDOMEN: Soft, nontender. No hepatosplenomegaly. EXTREMITIES: No edema. SPINE: Nontender. SKIN: No petechiae. No rash. CONDITION ON DISCHARGE: Stable. DISPOSITION: Discharge home. DISCHARGE MEDICATIONS: Levaquin 500 mg p.o. daily for 7 days. FOLLOWUP: Follow up with PCP in 1 week. Follow up with Hematology 1 week. No prescription given to the patient. Discussed with the patient. Discussed with the staff nurse. Karissa Mueller MD
--- NOTE | 2017-12-19 15:29 | CT ---
PROCEDURE: CT Chest, Abdomen and Pelvis without intravenous contrast HISTORY: fever nodes COMPARISON: 12/17/2017 CT thorax. 12/16/2017 CT abdomen and pelvis TECHNIQUE: Radiation dose: Total exam DLP = 652.19 mGy-cm. This CT exam was performed using one or more of the following dose reduction techniques: Automated exposure control, adjustment of the mA and/or kV according to patient size, and/or use of iterative reconstruction technique. FINDINGS: CT CHEST WITHOUT CONTRAST: LUNGS: Interval improvement with respect aeration of both lower lobes. MEDIASTINUM: Unremarkable. Normal caliber aorta and pulmonary arterial trunk. Normal size heart. LYMPH NODES: Unremarkable. PLEURA: Stable small bilateral pleural effusions. BONES: Unremarkable. OTHER FINDINGS: None. CT ABDOMEN AND PELVIS: LIVER: Unremarkable. No gross lesion or ductal dilatation. GALLBLADDER AND BILE DUCTS: Unremarkable. PANCREAS: Interval improvement in peripancreatic inflammatory change. SPLEEN: Unremarkable. ADRENALS: Unremarkable. No mass. KIDNEYS AND URETERS: Small nonobstructing calculus upper pole right kidney measuring 2 mm. . No hydronephrosis. No solid mass. VASCULATURE: Unremarkable. No aortic aneurysm. BOWEL: Unremarkable. No obstruction. No gross mural thickening. APPENDIX: Normal appendix. PERITONEUM: Trace free fluid identified in the pelvis/cul de sac. LYMPH NODES: Stable adenopathy primarily retroperitoneal lymph nodes. BLADDER: Unremarkable. REPRODUCTIVE: Unremarkable. BONES: No acute fracture. OTHER FINDINGS: None. IMPRESSION: Improving bilateral lower lobe infiltrates/atelectasis. Stable pleural effusions (small) bilaterally. Improving inflammatory changes about the pancreas. Stable retroperitoneal adenopathy. Additional benign and/or incidental findings described above.
--- NOTE | 2017-12-19 15:50 | PN ---
DATE: 12/18/2017 HISTORY OF PRESENT ILLNESS: Ms. Oneill is a 32-year-old female admitted to the hospital with high fever. She was not feeling well for past week, had productive cough. No nausea, no vomiting, no abdominal pain. CAT scan of the abdomen showed retroperitoneal lymphadenopathy. Chest x-ray was unremarkable. CT chest showed right lower lobe infiltrate. No mediastinal lymphadenopathy. She was started on IV antibiotic as per ID during hospitalization if she defervesced within 24 hours. No weight loss. No fatigue. ALLERGIES: NO KNOWN DRUG ALLERGIES. SOCIAL HISTORY: She denies any tobacco or alcohol abuse. FAMILY HISTORY: Noncontributory. PAST MEDICAL HISTORY: None. PAST SURGICAL HISTORY: None. HOME MEDICATIONS: None. REVIEW OF SYSTEMS: As per HPI. Rest of 12-point review of systems reviewed negative. PHYSICAL EXAMINATION: VITAL SIGNS: T-max 101.6. Respiratory rate 20 per minute, heart rate is 94 per minute, blood pressure 105/66, pulse ox is 98% room air. HEENT: Pallor positive. NECK: No lymphadenopathy. CHEST: Air entry present and equal bilaterally. No added sound. CARDIOVASCULAR: S1, S2 normal. No murmur. No gallop. ABDOMEN: Soft, nontender. No hepatosplenomegaly. EXTREMITIES: No edema. CENTRAL VENOUS SYSTEM: Alert and oriented x3. No focal sensory motor deficit. SKIN: No petechiae. No rash. SPINE: Nontender. LABORATORY DATA: White count 7.9, hemoglobin 11.2, hematocrit 33, platelet 199. Sodium 139, potassium 3.9, BUN 6, creatinine 0.8, glucose 103. ASSESSMENT: 1. Fever. 2. Retroperitoneal lymphadenopathy. PLAN: She is currently on IV antibiotic with Levaquin and Zosyn as per ID, to continue that and consultation with Dr. Loomis appreciated. Retroperitoneal lymphadenopathy, she needs further evaluation. CAT scan of the abdomen was without contrast. CT chest, abdomen and pelvis ordered with p.o. and IV contrast for tomorrow. Blood count stable. Mild anemia, hemoglobin 11.2, white count is not elevated. Renal functions within normal limits. MARILIA pending. RPR nonreactive. Karissa Mueller MD
[2017-12-19 18:35] LABS: FHA IGA 2 IU/mL; FHA IGG 14 IU/mL; PT IGG 2 IU/mL
--- NOTE | 2017-12-20 06:18 | PN ---
DATE: 12/19/2017 SUBJECTIVE: Patient is in bed, in no acute distress and nontoxic. She is doing well. She wants to be discharged. She has been afebrile. PHYSICAL EXAMINATION: VITAL SIGNS: Temperature is 98, blood pressure is 111/60, respiratory rate of 18. HEENT: Unremarkable. NECK: Supple. LUNGS: Have decreased breath sounds. HEART: Normal S1, S2. ABDOMEN: Soft, nontender. LABORATORY EXAMINATION: Reveals a white count of 6.9, hemoglobin of 9, platelets of 198. Chemistries reveals a BUN of 6, creatinine of 0.7. LDH is elevated at 881. C-reactive protein is elevated at 136, total protein is low at 6 and the albumin-globulin ratio was 1 and urinalysis is noted with 1 to 3 wbc's. Immunology is pending. Serology reveals urine for Legionella antigen is negative. HIV is negative. [place] screen is negative. Hepatitis profile is negative and Bordetella is not detected and RPR is negative. ASSESSMENT AND PLAN: A 32-year-old female who was seen early this morning in room 374, bed 2, with sepsis, right lower lobe community-acquired pneumonia and currently appears to have responded to the IV Levaquin, we will change to p.o. and discontinue the Zosyn. Dr. Suzanna Ballard's note is reviewed and she has requested a CAT scan of the abdomen and pelvis with intravenous and IV and p.o. contrast. I will order that. If possible, we will order a CAT scan of the chest with the abdomen and pelvis for better visualization of the lymphadenopathy. I have explained to the patient that she can go home. If able to do a CAT scan today inhouse, we will order it; however, if CAT scan cannot be done, she may be discharged with p.o. Levaquin. I have explained to her the importance of followup with Dr. Ballard and continue to follow up until workup is completed. She understands and states she will complete the workup. Tanner Loomis MD
--- NOTE | 2017-12-20 08:25 | PN ---
DATE: 12/17/2017 SUBJECTIVE: The patient is in bed, in no acute distress, was seen early this morning in 374, bed 2. Continues to have fevers. PHYSICAL EXAMINATION: VITAL SIGNS: Temperature is 101, blood pressure is 108/60, respiratory rate of 18, heart rate of 80, examination of the oxygen saturation 94%. HEENT: Examination of HEENT is unremarkable. NECK: Supple. LUNGS: Have decreased breath sounds. HEART: Normal S1 and S2. ABDOMEN: Soft. LABORATORY DATA: Laboratory examination reveals a white count of 6.9, hemoglobin of 9, sed rate is 28. The chemistries reveals a BUN of 6, creatinine of 0.7. C-reactive protein is 136. Urinalysis is noted. MARILIA pattern is pending. The patient's RPR is negative, FTA is negative. Streptococcal antigen negative. negative. HIV is negative. [place] screen is negative. Microbiology reveals the blood cultures are negative. The urine cultures have contamination. The patient had a CAT scan of the chest. Bilateral lower lobe compressive atelectasis, [place] right lower lobe infiltrate, possible pneumonia. Tanner Loomis MD
[2017-12-20 18:53] LABS: ALBUMIN (PEP) 2.6 g/dL (3.8-4.8); ALPHA-1-GLOBULIN (PEP) 0.4 g/dL (0.2-0.3)
--- NOTE | 2017-12-31 06:11 | PQF ---
PROVIDER RESPONSE TEXT: Pt with sepsis due to pneumonia. REVIEWER QUERY TEXT: Rule Out Sepsis Clarification Rule out Sepsis is documented in the Medical Record. Please clarify whether: -- Patient has sepsis - Please document confirmed, suspected or probable causative organism - Please document confirmed, suspected or probable localized infection - Please clarify if sepsis is related to a device - Please clarify if sepsis was present on admission -- Sepsis was ruled out (include corresponding diagnosis for patient?s clinical picture and treatment ) -- Patient had sepsis which is resolved -- Other, please specify The patient's Clinical Indicators include: ID noted"Sepsis with RLL Pneumonia". CXR-RLL infiltrate. IV Levaquin Please verify if ruled in or ruled out. Query created by: Catalina Magallon on 12/29/2017 1:56 PM Electronically signed by: Burke Ospina MD 12/31/2017 6:07 AM
== END 2017-12-19 14:15 | disposition home or self-care (01) | DRG 584 ==
LOC: ED 16:12 → ERH 18:27 → 3RSO 19:56
PROVIDERS: ADMIT Internal Medicine; ATTEND Internal Medicine
DX: A41.9 Sepsis, unspecified organism (principal); J18.9 Pneumonia, unspecified organism; R59.0 Localized enlarged lymph nodes